=== PATIENT | female | born 1965 | race Caucasian/White ===

== ENCOUNTER → 2017-04-27 | Outpatient (CLI) | payer MEDICARE ==
[2017-04-27 12:24] LABS: EKG EKG PERFORMED
[2017-04-27 12:57] LABS: ALT 33 U/L (9-52); AST 19 U/L (14-36); Alkaline Phosphatase 78 U/L (38-126); Anion Gap 7 mmol/L; Blood Urea Nitrogen 11 mg/dL (7-17); Carbon Dioxide 24 mmol/L (22-30); Chloride 110 mmol/L (98-107); Glucose 89 mg/dL (74-99); Non-African American GFR(MDRD) >60 (>60 ml/min/1.73 sqM); Potassium 4.1 mmol/L (3.5-5.1); Sodium 141 mmol/L (137-145); Total Bilirubin 0.3 mg/dL (0.2-1.3); Total Protein 5.5 g/dL (6.3-8.2)
[2017-04-27 16:03] LABS: Hemoglobin A1C 5.6 % (4.2-6.1)
== END | disposition home or self-care (01) ==
LOC: LABWHC1 11:59
PROVIDERS: ATTEND Psychiatry & Neurology Psychiatry
DX: T50.905A Adverse effect of unspecified drugs, medicaments and biological substances, initial encounter (principal)
CPT/HCPCS: 36415; 80053; 83036; 84443; 93005

== ENCOUNTER → 2017-11-13 | Outpatient (CLI) | payer MEDICARE, OTHER ==
--- NOTE | 2017-11-13 10:39 | MR ---
EXAMINATION TYPE: MR lumbar spine wo con DATE OF EXAM: 11/13/2017 COMPARISON: Prior MR lumbar spine 01/13/2010 HISTORY: Low back pain TECHNIQUE: Multiplanar, multisequence images of the lumbar spine were acquired. L1-L2: Right posterior paracentral disc herniation causes anterolateral mass effect on the thecal sac , mild right-sided foraminal encroachment suspected. No significant central stenosis. L2-L3: Right posterior paracentral extension of disc herniation causes anterolateral mass effect on t he thecal sac, there is likely disc material posterior to the L2 vertebral body measuring approximate ly 1.5 cm in cephalad to caudal direction by 6 mm in AP dimension by 15 mm in transverse dimension. T here is encroachment on the right neural foramen. No significant central canal stenosis. There is shawn e facet arthropathy. L3-L4: Broad-based posterior disc bulge causes only slight anterior mass effect on the thecal sac. Th ere is mild facet arthropathy, no significant foraminal encroachment or central stenosis. L4-L5: Broad-based disc bulge contacts anterior thecal sac. Differential extension encroaches mildly on the foramina. No canal stenosis is present. There is facet arthropathy present. Small synovial c yst may be present posterior to the thecal sac measuring only 2 to 3 mm as on prior. L5-S1: Normal disc appearance without desiccation. No herniation, protrusion or disc bulging. No ca nal stenosis is present. Foramina are patent bilaterally. Mild facet arthropathy noted. Lumbar segments are intact. No paraspinal masses are identified. Conus medullaris has a normal appe arance. Multilevel spondylosis with endplate discogenic marrow signal changes again noted. Alignment is stable. Loss of disc height and signal at the intervertebral levels especially L1-2 and L2-3 is ag ain seen greater than L3-4, L4-5. Suspect a mild spinal curvature. Cystic focus present in the upper pole the left kidney measures 15 mm in greatest dimension and may be increased in size in interval. IMPRESSION: Disc herniation L2-3 with possible sequestered fragment, correlate for right L2 radiculopathy. Disc h erniation also present L1-2 is mild causing anterolateral mass effect on the thecal sac. Additional f indings above.
== END ==
LOC: RADMRIMAIN 09:01
PROVIDERS: ATTEND Psychiatry & Neurology Pain Medicine
DX: M51.26 Other intervertebral disc displacement, lumbar region (principal); M46.97 Unspecified inflammatory spondylopathy, lumbosacral region
CPT/HCPCS: 72148

== ENCOUNTER 2021-08-05 16:11 | Emergency (ER) | payer MEDICARE, OTHER ==
[2021-08-05 16:16] VITALS: RESP 20
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
[2021-08-05 17:13] VITALS: TEMP 98.7
[2021-08-05 17:44] LABS: Amphetamine Screen,Urine Detected (NotDetected); Barbiturate Screen,Urine Not Detected (NotDetected); Benzodiazepines Screen,Urine Not Detected (NotDetected); Cocaine Screen,Urine Not Detected (NotDetected); Methadone Screen, Urine Not Detected (NotDetected); Opiate Screen,Urine Not Detected (NotDetected); Oxycodone Screen, Urine Not Detected (NotDetected); Phencyclidine Screen,Urine Not Detected (NotDetected); Tricyclic Antidepressant,Urine Not Detected (NotDetected); Urn Cannabinoid Scrn Detected (NotDetected)
[2021-08-05 23:13] VITALS: BP 135/76; PULSE 76
== END 2021-08-06 02:00 | disposition home or self-care (01) ==
LOC: EC 16:11
DX: F41.9 Anxiety disorder, unspecified (principal); Z86.73 Personal history of transient ischemic attack (TIA), and cerebral infarction without residual deficits; M19.90 Unspecified osteoarthritis, unspecified site; Z79.899 Other long term (current) drug therapy
CPT/HCPCS: 80306; 82075; 99284

== ENCOUNTER 2024-09-19 18:10 | Emergency (ER) | payer MEDICARE, OTHER ==
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
--- NOTE | 2024-09-19 20:00 | US ---
EXAMINATION TYPE: US abdomen complete DATE OF EXAM: 09/19/2024 COMPARISON: NONE CLINICAL INDICATION: Female, 59 years old with history of abdominal pain; Patient states epigastric p ain for a few months TECHNIQUE: Grayscale and color Doppler imaging of the abdomen was performed. FINDINGS: EXAM MEASUREMENTS: Liver Length: 16.3 cm Gallbladder Wall: 0.2 cm CBD: 0.3 cm, color Doppler imaging was utilized to isolate the common bile duct for measurement. Spleen: 10.3 cm Right Kidney: 9.3 x 3.6 x 3.7 cm Left Kidney: 11.5 x 5.2 x 5.3 cm MINE EXPLORATION ENGINEER NOTES: Slightly limited due to overlying bowel gas Pancreas: Obscured by bowel gas Liver: Appears slightly echogenic Gallbladder: No stones seen. Wall wnl Evidence for sonographic Peterson's sign: no CBD: wnl Spleen: wnl as best seen Right Kidney: wnl as best seen, possible column of madi seen Left Kidney: There is a 1.8 x 2.0 x 2.0cm anechoic area seen within the superior pole of the left ki dney. Upper IVC: wnl Abd Aorta: Prox and mid aorta appear ectatic The liver is homogenous. The intrahepatic portion of the IVC and proximal abdominal aorta are within normal limits. There is no evidence of cholelithiasis. Common bile duct is unremarkable. The visu alized portions of the pancreas are homogenous. The spleen is unremarkable. Kidneys are symmetric a nd free of hydronephrosis. No renal lesions are seen. IMPRESSION: 1. No evidence for acute abdominal process. 2. Hepatic steatosis. [facility], Workstation: [id number], 09/19/2024 7:57 PM
[2024-09-19 20:21] VITALS: RESP 16
[2024-09-19 20:29] LABS: Basophils % (A) 0 %; Eosinophils # (A) 0.4 k/uL (0-0.7); Eosinophils % (A) 5 %; HCT 41.8 % (34.0-46.0); HGB 13.1 gm/dL (11.4-16.0); Lymphocytes # (A) 2.8 k/uL (1.0-4.8); Lymphocytes % (A) 36 %; MCHC 31.4 g/dL (31.0-37.0); MCV 95.3 fL (80.0-100.0); Mean Platelet Volume 7.6; Monocytes # (A) 0.5 k/uL (0-1.0); Monocytes % (A) 7 %; Neutrophils # (A) 3.9 k/uL (1.3-7.7); Neutrophils % (A) 50 %; Platelet Count 323 k/uL (150-450); RBC 4.39 m/uL (3.80-5.40); RDW 13.5 % (11.5-15.5); WBC 7.8 k/uL (3.8-10.6)
[2024-09-19 20:36] LABS: ALT 15 U/L (4-34); AST 23 U/L (14-36); African American GFR (CKD) 83 (>60 ml/min/1.73 sqM); Albumin 4.5 g/dL (3.5-5.0); Alkaline Phosphatase 62 U/L (38-126); Amylase 60 U/L (30-110); Anion Gap 4 mmol/L; Blood Urea Nitrogen 18 mg/dL (7-17); Calcium 9.5 mg/dL (8.4-10.2); Carbon Dioxide 31 mmol/L (22-30); Chloride 103 mmol/L (98-107); Glucose 109 mg/dL (74-99); Lipase 68 U/L (23-300); Non-African American GFR(CKD) 72 (>60 ml/min/1.73 sqM); Potassium 4.4 mmol/L (3.5-5.1); Sodium 138 mmol/L (137-145); Total Bilirubin 0.2 mg/dL (0.2-1.3); Total Protein 7.1 g/dL (6.3-8.2)
--- NOTE | 2024-09-19 22:00 | CT ---
EXAMINATION TYPE: CT abdomen pelvis w con DATE OF EXAM: 09/19/2024 9:25 PM COMPARISON: 10/26/2010 CLINICAL INDICATION: Female, 59 years old with history of abd pain, Pt c/o abdominal pain with nausea that has been intermittent for a couple months but now is constant since two days ago. TECHNIQUE: Axial images were obtained from above the diaphragm to the pubic rami in the axial plane a t 5 mm thick sections. Reconstructed images are reviewed on the computer in the coronal plane. CONTRAST: 100 ml mL of Isovue 300. Study performed without Oral Contrast DLP: 917.1 mGycm, Automated exposure control for dose reduction was used. FINDINGS: Limited CT sections are obtained the lung bases. The lung bases are clear. CT ABDOMEN: Liver: Normal Spleen: Normal Pancreas: Normal Adrenal glands: The adrenal glands are normal. Gallbladder: Normal Kidneys: No masses are evident. No hydronephrosis is present. 1.7 cm cyst medial left kidney Delay ed images were obtained through the kidneys, which remain unremarkable. Aorta: Normal Inferior vena cava: Normal. CT PELVIS: Loops of bowel within the abdomen and pelvis are normal. There are diverticuli within the sigmoid col on without acute diverticulitis. This study is without contrast limiting bowel evaluation. Appendix: Normal as visualized. Urinary bladder: Normal. Genitourinary structures: Uterus is normal. Adnexa are unremarkable. Osseous structures: No suspicious lytic or sclerotic lesions. IMPRESSION: 1. No suspicious abnormality account for nausea. 2. Diverticulosis without acute diverticulitis [facility], , 09/19/2024 9:57 PM
[2024-09-19 22:34] VITALS: BP 126/74; PULSE 60; TEMP 98.6
== END 2024-09-19 22:33 | disposition home or self-care (01) ==
LOC: EC 18:10
DX: R10.13 Epigastric pain (principal); F17.200 Nicotine dependence, unspecified, uncomplicated; Z86.73 Personal history of transient ischemic attack (TIA), and cerebral infarction without residual deficits
CPT/HCPCS: 36415; 80053; 82150; 83605; 83690; 85025; 76700; 74177; 99284; Q9967

== ENCOUNTER → 2024-12-30 | Outpatient (CLI) | payer MEDICARE, OTHER ==
--- NOTE | 2025-01-07 12:27 | MM ---
Reason for Exam: Screening (asymptomatic). Last mammogram was performed 14 year(s) and 1 month(s) ago. Patient History: Menarche at age 13. First Full-Term at age 16. Postmenopausal. Sister had breast cancer, age 40. Risk Values: Chelo 5 year model risk: 2.4%. NCI Lifetime model risk: 12.1%. Prior Study Comparison: 09/29/2008 Bilateral Screening Mammogram, [facility]. 11/15/2010 Bilateral Screening Mammogram, [facility]. Tissue Density: The breasts are almost entirely fatty. Findings: Analyzed By CAD. Right breast: There is no suspicious group of microcalcifications or new suspicious mass. Left breast: There is no suspicious group of microcalcifications or new suspicious mass. Overall Assessment: Negative, BI-RAD 1 Management: Screening Mammogram of both breasts in [address] [facility] will attempt to contact patient to return for supplemental views and ultrasound if indicated. Patient should continue monthly self-breast exams. A clinical breast exam by your physician is recommended on an annual basis. This exam should not preclude additional follow-up of suspicious palpable abnormalities. Note on Chelo scores and lifetime risk: 1. A Chelo score greater than 3% is considered moderate risk. If this is the case, consider specialist referral to assess eligibility for a risk reducing agent. 2. If overall lifetime risk for the development of breast cancer is 20% or higher, the patient may qualify for future screening with alternating mammogram and breast MRI. [facility], , 12/30/2024 2:07 PM. Electronically signed and approved by: Ortiz Dobbs DO
== END | disposition home or self-care (01) ==
LOC: RADMAMWWP 13:46
PROVIDERS: ATTEND Family Medicine
DX: Z12.31 Encounter for screening mammogram for malignant neoplasm of breast (principal); R92.313 Mammographic fatty tissue density, bilateral breasts; Z78.0 Asymptomatic menopausal state; Z80.3 Family history of malignant neoplasm of breast
CPT/HCPCS: 77063; 77067

== ENCOUNTER → 2025-04-23 | Outpatient (CLI) | payer MEDICARE, OTHER ==
--- NOTE | 2025-04-24 11:48 | CTL ---
EXAMINATION TYPE: CT Low Dose Lung DATE OF EXAM: 04/23/2025 12:12 PM COMPARISON: None. CLINICAL INDICATION: Female, 59 years old with history of Z12.2 F17.210; patient current smoker, smok es 1 pack a day for 45 years., history of tobacco use. TECHNIQUE: Multiple axial non-contrast scans were obtained from approximately the lung apices through the upper abdomen. Coronal and sagittal reformatted images were obtained. Low dose technique was uti lized. MIP were created on a separate workstation and submitted for review. CT DLP: 85.5 mGycm, Automated exposure control for dose reduction was used. CT Contrast: Contrast used: None Oral contrast used: None FINDINGS: Lack of intravenous contrast and low dose technique limits the evaluation of the vascular and soft ti ssue structures. LUNGS: No evidence of pulmonary fibrosis. No evidence of focal consolidation, pneumothorax or pleural effusion. Centrilobular emphysema changes. Nodules: RUL: 4 mm series 5 image 12. RML: None. RLL: None. EH: None. LLL: None. AIRWAY: Patent and unremarkable. HEART: Size within normal limits. No significant coronary artery calcifications. MEDIASTINUM: No gross evidence of adenopathy. VASCULATURE: No aortic aneurysm. MUSCULOSKELETAL: Mild disc degeneration changes are present throughout the thoracolumbar spine. SOFT TISSUES/LYMPH NODES: Unremarkable. LOWER NECK: No significant findings. UPPER ABDOMEN: No significant findings. IMPRESSION: 1. No clinically significant pulmonary nodules. 2. Mild emphysema. CT LUNG RAD AND CT CHEST RECOMMENDATION: Lung-Rad 2 Benign Appearance or Behavior: Continue annual sc reening with LDCT in 12 months. S Modifier (other clinically significant findings): None Recommend smoking cessation (if current smoker), or continuation of smoking cessation (if prior smoke r). Annual screening for lung cancer with low-dose computed tomography is recommended in adults ages 55 to 77 years who have a 30 pack-year smoking history and currently smoke or have quit within the pa st 15 years. Screening should be discontinued once a person has not smoked for 15 years or develops a health problem that substantially limits life expectancy or the ability or willingness to have curat jaja lung surgery. Lung rads 2021 [email or web address] [email or web address], , 04/24/2025 11:45 AM
== END | disposition home or self-care (01) ==
LOC: RADCTMAIN 11:48
PROVIDERS: ATTEND Family Medicine
DX: Z12.2 Encounter for screening for malignant neoplasm of respiratory organs (principal); F17.210 Nicotine dependence, cigarettes, uncomplicated; J43.2 Centrilobular emphysema
CPT/HCPCS: 71271